=== PATIENT | female | born 1985 | race Caucasian/White ===

== ENCOUNTER 2019-06-23 10:09 | Emergency (ER) | payer MEDICAID ==
[~2019-06-23] VITALS: Ht 162.6 cm; Wt 50.0 kg
[2019-06-23 15:03] VITALS: BP 106/62
== END 2019-06-23 18:27 | disposition left against medical advice (07) ==
LOC: ER 10:09
DX: Z53.21 Procedure and treatment not carried out due to patient leaving prior to being seen by health care provider (principal)